=== PATIENT | male | born 1990 | race Caucasian/White ===

== ENCOUNTER 2019-10-21 23:08 | Emergency (ER) | payer BC ==
[~2019-10-21] VITALS: Ht 167.6 cm; Wt 104.3 kg
--- NOTE | 2019-10-21 23:11 | NUR ---
PT TAKEN TO BED 5
[2019-10-21 23:13] VITALS: BP 148/117
--- NOTE | 2019-10-21 23:15 | NUR ---
PT 29 Y/O MALE BIB SELF FOR C/O CHEST PRESSURE WITH NUMBNESS OF L ARM X 2 HOURS. PT ALSO HAS C/O "FEELING ANXIOUS" PT STATES, "I STARTED TO FEEL WEIRD AFTER EATING A BURGER." PT STATES THAT HE CHECKED HIS BLOOD GLUCOSE PRIOR TO ARRIVAL AND IT WAS 395. PT STATED HE GAVE HIMSELF 10 U OF INSULIN. PT BS RECHECKED: 441. ERMD MADE AWARE. PT RESPIRATIONS ARE EVEN AND UNLABORED. SKIN IS DRY TOUCH. PT DENIES N/V/D. 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 BED IS LOCKED AND IN LOWEST POSTION. MEDHX: HTN, DM TYPE II, ANXIETY ALLERGIES: NKA
--- NOTE | 2019-10-21 23:17 | NUR ---
Dr. Locke examining patient.
[2019-10-21] MEDS ORDERED: INSULIN REGULAR, HUMAN 100 UNIT/ML VIAL SUBQ ONE (23:20)
[2019-10-21] MEDS ORDERED: NACL 0.9% 1,000 ML IV ONE (23:20)
[2019-10-21] MEDS ORDERED: LORazepam 0.5 MG TAB PO ONE (23:20)
--- NOTE | 2019-10-21 23:28 | NUR ---
X-Ray at bedside.
--- NOTE | 2019-10-21 23:30 | NUR ---
LAB AT BEDSIDE.
--- NOTE | 2019-10-21 23:32 | NUR ---
IV PLACED IN R AC 20G. IV SITE PATENT. NO C/O PAIN OR SWELLING NOTED.
[2019-10-21 23:35] LABS: BASOPHILS # (AUTO) 0.1 K/uL (0.00-0.22); LYMPHOCYTES # (AUTO) 1.8 K/uL (2.0-11.5)
--- NOTE | 2019-10-21 23:35 | NUR ---
EKG BEING PERFORMED AT BEDSIDE.
[2019-10-21 23:43] LABS: LYMPHOCYTES % (AUTO) 23.1 % (20.5-51.1); MEAN CORPUSCULAR VOLUME 86.6 fL (80-94); NEUTROPHILS % (AUTO) 69.6 % (42.2-75.2)
--- NOTE | 2019-10-21 23:45 | NUR ---
PT GIVEN ATIVAN 0.5MG 1 TAB PO FOR ANXIETY. BS 441: HUMILIN R 10 UNITS GIVEN SQ IN ABD. NS 0.9% 1L RUNNING CONTINOUSLY IN R AC. IV SITE IS PATENT. PT ON CARIDAC MONITOR. VSS. 0/10 PAIN.
[2019-10-21 23:47] LABS: BASOPHILS % (AUTO) 0.9 % (0.0-2.0); EOSINOPHILS % (AUTO) 0.6 % (0.0-4.0); HEMATOCRIT 44.8 % (36-52); HEMOGLOBIN 15.9 g/dL (12.0-18.0); MEAN CORPUSCULAR HEMOGLOBIN 31 pg (27-31); MEAN CORPUSCULAR HGB CONC 36 g/dL (33-37); MONOCYTES # (AUTO) 0.5 K/uL (0.8-1.0); MONOCYTES % (AUTO) 5.8 % (1.7-9.3); NEUTROPHILS # (AUTO) 5.4 K/uL (1.8-7.7); PLATELET COUNT (AUTO) 150 K/uL (140-450); RED BLOOD CELL COUNT(AUTO) 5.17 MIL/uL (4.20-6.10); RED CELL DISTRIBUTION WIDTH 13.1 % (11.6-13.7); WHITE BLOOD COUNT (AUTO) 7.8 K/uL (4.8-10.8)
--- NOTE | 2019-10-22 00:23 | NUR ---
RBG CHECK 394. THEO POND MADE AWARE.
[2019-10-22 00:28] LABS: ANION GAP 16.7 (8-16); CARBON DIOXIDE 25.7 mmol/L (21-32); CREATININE 1.4 mg/dL (0.6-1.3); POTASSIUM 4.4 mmol/L (3.5-5.1); TOTAL BILIRUBIN 0.6 mg/dL (0.0-1.0)
--- NOTE | 2019-10-22 01:10 | NUR ---
PT AMBUALTED TO RESTROOM WITH STEADY GAIT.
[2019-10-22 01:25] VITALS: BP 144/78
--- NOTE | 2019-10-22 01:25 | NUR ---
Patient discharged with v/s stable. Written and verbal after care instructions given and explained. Patient verbalized understanding. Ambulatory with steady gait. All questions addressed prior to discharge. Advised to follow up with PMD.
== END 2019-10-22 01:25 | disposition home or self-care (01) ==
LOC: MED 23:08
DX: E11.22 Type 2 diabetes mellitus with diabetic chronic kidney disease (principal); I12.9 Hypertensive chronic kidney disease with stage 1 through stage 4 chronic kidney disease, or unspecified chronic kidney disease; N18.9 Chronic kidney disease, unspecified; F41.9 Anxiety disorder, unspecified; E11.65 Type 2 diabetes mellitus with hyperglycemia
CPT/HCPCS: 36415; 71045; 80053; 84484; 85025; 93005; 96360; 96372; 99285; J1815; J7030; Q0092

== ENCOUNTER 2019-10-23 11:48 | Emergency (ER) | payer BC ==
[~2019-10-23] VITALS: Ht 167.6 cm; Wt 100.7 kg
[2019-10-23 12:03] VITALS: BP 146/74
--- NOTE | 2019-10-23 12:03 | NUR ---
Patient taken to chair C in hallway bed.
--- NOTE | 2019-10-23 12:15 | NUR ---
29/M presents to ED with complaints of chest pressure and left arm numbness that started yesterday. Pt states the left arm numbness began yesterday. He states he was seen here approximately a week ago for similar symptoms and was dx with anxiety. Patient states today while driving his car he began to feel chest pressure and a "jolt" "felt like electricty running through me." Patient states the feeling has since resolved. Denies pain at this time. VSS.
--- NOTE | 2019-10-23 13:43 | NUR ---
LAB AT BEDSIDE.
[2019-10-23 14:40] VITALS: BP 124/65
--- NOTE | 2019-10-23 14:40 | NUR ---
Patient discharged with v/s stable. Written and verbal after care instructions given and explained. Patient alert, oriented and verbalized understanding of instructions. Ambulatory with steady gait. All questions addressed prior to discharge. ID band removed. Patient advised to follow up with PMD. Rx of VISTARIL given. Patient educated on indication of medication including possible reaction and side effects. Opportunity to ask questions provided and answered.
== END 2019-10-23 14:40 | disposition home or self-care (01) ==
LOC: MED 11:48
DX: F41.9 Anxiety disorder, unspecified (principal); I10 Essential (primary) hypertension; E11.9 Type 2 diabetes mellitus without complications
CPT/HCPCS: 36415; 84484; 93005; 99284